=== PATIENT | male | born 1955 | race Caucasian/White ===

== ENCOUNTER → 2022-02-18 | Outpatient (CLI) | payer OTHER ==
[2022-02-18 12:07] LABS: CHOLESTEROL 136 mg/dL (<200); CREATININE 1.06 mg/dL (0.70-1.30); LDL CHOLESTEROL 82 mg/dL (9-159); SGPT/ALT 41 U/L (12-78); TRIGLYCERIDES 147 mg/dl (<150)
[2022-02-18 12:21] LABS: CARBAMAZEPINE (TEGRETOL) TOTAL < 0.5 ug/ml (4-12); THEOPHYLLINE < 2.0 ug/ml (10-20)
== END | disposition home or self-care (01) ==
LOC: LAB 10:56
PROVIDERS: ATTEND Internal Medicine
DX: E78.00 Pure hypercholesterolemia, unspecified (principal); E11.9 Type 2 diabetes mellitus without complications; E03.9 Hypothyroidism, unspecified

== ENCOUNTER → 2022-08-13 | Outpatient (CLI) | payer OTHER ==
[2022-08-13 10:36] LABS: INTERNATIONAL NORM RATIO 2.5 (2.0-3.5)
== END ==
LOC: LAB 09:54
PROVIDERS: ATTEND Internal Medicine
DX: D68.61 Antiphospholipid syndrome (principal); Z79.01 Long term (current) use of anticoagulants